=== PATIENT | male | born 1960 | race Caucasian/White ===

== ENCOUNTER 2024-08-22 07:25 | Day surgery (SDC) | payer MEDICARE, OTHER, SELFPAY ==
--- NOTE | 2024-08-22 | PATH_ITS ---
[facility] Accession Number: [id number] No. of containers..01 Tissue . 01 Material submitted: . sigmoid colon - SIGMOID POLYP . 01 Diagnosis: SIGMOID COLON POLYP: Hyperplastic polyp. MRV 08/26/2024 1237 Local . 01 Electronically signed: . Princess Alford MD, Pathologist NPI- [id number] . 01 Gross description: . The specimen is received in formalin, labeled with two patient identifiers and sigmoid polyp, and consists of three olivares tissues ranging from 0.3 cm up to 1.0 cm in greatest dimension, which are entirely submitted in cassette A1. ([id number]) /FRR 08/23/2024 1229 Local . 01 Pathologist provided ICD-10: D12.5 . 01 CPT . 993836 Specimen Comment: A courtesy copy of this report has been sent to [facility] Pathology Performed at: [address] [id number] MD Graham Abraham MD Phone: [phone]
[2024-08-22] MEDS: LACTATED RINGERS 1,000 ML 100 ML IV (07:45)
[2024-08-22 07:50] VITALS: BP 165/93; PULSE 98; RESP 16; TEMP 36.6; O2SAT 100
--- NOTE | 2024-08-22 08:14 | PM.HP.IH.1 ---
History of Present Illness History of Present Illness Date Patient Seen: 08/22/24 Time Patient Seen: 08:14 Date of Onset of Symptoms: 08/22/24 Chief complaint: SDC Narrative: 64-year-old white male, 10 years since his last colonoscopy, no symptoms. Presents for subsequent screening [facility] Social History Smoking Status: Former smoker alcohol intake: current Meds Home Medications and Allergies Home Medications Medication Instructions Recorded Confirmed Type IBUPROFEN (Motrin / Advil) 400 mg PO Q DAY ##0 08/11/09 History sodium,potassium,mag sulfates 17.5 See Rx Instructions PO .COMPLEX 07/18/24 Rx gram-3.13 gram-1.6 gram oral soln #354 mL (Suprep Bowel Prep Kit) Allergies Allergy/AdvReac Type Severity Reaction Status Date / Time INGREDIENT: NKDA - NO KNOWN Allergy Unknown Uncoded 08/29/17 12:15 DRUG ALLERGIES Review of Systems Review of Systems ROS: Yes All systems reviewed with the patient and are negative except as otherwise documented Exam Vital Signs (past 8 hours): - 08/22/24 07:50 Temperature 97.8 F Pulse Rate 98 H Respiratory Rate 16 Blood Pressure 165/93 H Pulse Oximetry 100 Oxygen Delivery Method Room Air Oxygen Delivery Method Room Air Narrative Exam Narrative: Gen: NAD, sitting comfortably in bed, appears well HEENT: Sclera are anicteric, head is normocephalic and atraumatic, trachea is midline. CV: RRR, no JVD Resp: clear to auscultation bilaterally, equal chest wall movement bilaterally Abd: soft, nontender, normoactive bowel sounds Ext: no edema, full range of motion Neuro: Cranial nerves II-XII grossly intact, no focal deficits Skin: No erythema or ecchymosis Assessment & Plan Assessment and plan (1) Colon cancer screening: Status: Acute Assessment & Plan narrative: Patient presents for colonoscopy Risks, benefits, alternatives to colonoscopy explained, including but not limited to bowel perforation or other serious complication requiring surgery at less than 1 in 5000 colonoscopies, abdominal pain, cramping or bleeding and less than 1% of colonoscopies, and the chances that we find a diagnosis that would require further intervention of about 2%. Patient agrees to proceed. Time-Based Coding :: [TOTAL MINUTES] spent with patient and on the chart (including review of chart, obtaining history, exam, reviewing outside data, placing orders, documenting exam and treatment plan, and counseling patient) on [DATE]. [employer] Document charge(s): No
--- NOTE | 2024-08-22 08:34 | PM.OP.COLON ---
Operative Date/Time/Diagnoses Date of procedure: 08/22/24 Time of procedure: 08:34 Pre-op diagnosis: Colon screening Post-op diagnosis: same (Benign sigmoid polyp) Procedure & Clinicians Study performed: Colonoscopy with cold snare polypectomy Same procedure as scheduled: Yes Indications: Colon screening Surgeon: Chad Newman Procedure Notes SCOAP/Timeout: Performed Procedure in detail: Time-out was performed. Mac was induced. Patient was placed in left lateral decubitus position. The perineum was inspected without any gross abnormality. Lubricated pediatric colonoscope was inserted and advanced to the cecum. The terminal ileum was intubated. The colonoscope was withdrawn slowly inspecting the circumference of the colon. A small, less than 10 mm sigmoid polyp was noted, removed with cold snare polypectomy completely and retrieved Very small polyps may have been missed, prep quality was adequate. Retroflexed view of the rectum showed small, non prolapsed nonbleeding internal hemorrhoids. The scope was withdrawn the patient was taken to PACU in good condition. Scope withdrawal time: 10 Findings: internal hemorrhoids and polyp(s) Specimen(s): other (Sigmoid polyp) Complications: none Impression: Sigmoid polyp Post-procedure Recommendations: Colonoscopy in 10 years (Next colonoscopy in 7 years) Plan for aftercare: homw Follow up: as needed Disposition: PACU
[2024-08-22 08:36] VITALS: BP 126/70; PULSE 83; RESP 12; TEMP 36.4; O2SAT 94
[2024-08-22 08:41] VITALS: BP 124/72; PULSE 76; RESP 15; O2SAT 97
[2024-08-22 08:47] VITALS: BP 124/74; PULSE 70; RESP 12; TEMP 36.6; O2SAT 96
== END 2024-08-22 09:07 | disposition home or self-care (01) ==
PROVIDERS: PCP Internal Medicine; Referring Provider Surgery; Visit Provider Surgery
PROC: 0DJD8ZZ Inspection of Lower Intestinal Tract, Via Natural or Artificial Opening Endoscopic (ICD-10-PCS; CPT 45378; principal; 2024-08-22 08:15)
DX: Z12.11 Encounter for screening for malignant neoplasm of colon (principal); Z87.891 Personal history of nicotine dependence; K57.30 Diverticulosis of large intestine without perforation or abscess without bleeding; K64.8 Other hemorrhoids; D12.5 Benign neoplasm of sigmoid colon
CPT/HCPCS: 45385; J2704